=== PATIENT | male | born 1970 | race Caucasian/White ===

== ENCOUNTER 2019-03-01 12:22 | Emergency (ER) | payer SELFPAY ==
[~2019-03-01] VITALS: Ht 165.1 cm; Wt 91.3 kg
[2019-03-01 12:26] VITALS: BP 164/104
--- NOTE | 2019-03-01 12:41 | NUR ---
PT AMB TO BED 2
--- NOTE | 2019-03-01 12:45 | NUR ---
PT BIB BOSS C/O SMALL PALM TREE CUT/PUNCTURE WOUND TO LEFT FOREARM; REDNESS , SWOLLEN,PAIN X TODAY PAIN 05/20. ER MD AT BEDSIDE. BILAT PARTY HOST WNL. CAP REFILL -WNL
[2019-03-01] MEDS ORDERED: NEOMYCIN/POLYMYXIN/BACITRACIN 0.9 GM/1 PKT TP ONE (13:10)
[2019-03-01] MEDS ORDERED: LIDOCAINE 1% 500 MG/50 ML VIAL INJ ONE (13:10)
[2019-03-01] MEDS ORDERED: LIDOCAINE MPF 1% 5mL VIAL ONE ×2 (13:27→15:05)
[2019-03-01] MEDS ORDERED: LIDOCAINE/EPI 1% 1:100000 20 ML VIAL INJ ONE (14:10)
[2019-03-01] MEDS ORDERED: cefTRIAXone 1,000 MG in LIDOCAINE 1% ***ER ONLY *** 2.1 ML IM ONE (14:45)
[2019-03-01] MEDS ORDERED: cefTRIAXone 1,000 MG VIAL ONE (15:01)
[2019-03-01 16:15] VITALS: BP 148/82
--- NOTE | 2019-03-01 16:15 | NUR ---
Patient discharged with v/s stable. Written and verbal after care instructions given and explained. Patient alert, oriented and verbalized understanding of instructions. Ambulatory with steady gait. All questions addressed prior to discharge. ID band removed. Patient advised to follow up with PMD. Rx of IBUPROFEN 400MG, BACTRIM 800MG-160MG AND KEFLEX 500MG given. Patient educated on indication of medication including possible reaction and side effects. Opportunity to ask questions provided and answered.
== END 2019-03-01 16:15 | disposition home or self-care (01) ==
LOC: MED 12:22
DX: S51.842A Puncture wound with foreign body of left forearm, initial encounter (principal); W45.8XXA Other foreign body or object entering through skin, initial encounter; Y93.89 Activity, other specified; Y92.89 Other specified places as the place of occurrence of the external cause; Y99.8 Other external cause status
CPT/HCPCS: 10120; 90471; 90715; 96372; 99284; J0696; J2001